=== PATIENT | female | born 1990 | race Caucasian/White ===

== ENCOUNTER 2017-12-04 23:13 | Emergency (ER) | payer OTHER ==
--- NOTE | 2017-12-04 23:35 | PDOC ---
History of Present Illness - General Chief Complaint: Syncope/Near Syncope Stated Complaint: SYNCOPE Time Seen by Provider: 12/04/17 23:20 History Source: Patient Exam Limitations: No Limitations - History of Present Illness Initial Comments: 12/05/17 00:00 This is a 27-year-old female who comes in complaining of a syncopal episode while urinating. Patient has history of syncopal episodes in the past during urination. Patient otherwise has seen a doctor and had them worked up with no cause found. Patient is otherwise healthy denies any medical complaints. Patient has not had any recent illness or did not skip any meals recently. Patient did not injure herself when she passed out. PAST MEDICAL HISTORY: no significant history PAST SURGICAL HISTORY: no significant history FAMILY HISTORY: no pertinant history SOCIAL HISTORY: Pt lives with family and is employed. MEDICATIONS: reviewed ALLERGIES: As per nursing notes Review of Systems General: No fevers or chills, no weakness, no weight loss HEENT: No change in vision. No sore throat,. No ear pain CardioVascular: No chest pain or shortness of breath Respiratory:No cough, or wheezing. Gastrointestinal: no nausea, vomitting, diarrhea or constipation, No rectal bleeding Genitourinary: No dysuria, hematuria, or frequency Musculoskeletal: No joint or muscle pain or swelling Neurologic: No headache, vertigo, + syncope Psychiatric: nor depression Skin: No rashes or easy bruising Endocrine: no increased thirst or abnormal weight change Allergic: no skin or latex allergy All other systems reviewed and normal Exam: General: Well-nourished well-developed individual, no acute distress HEENT: Throat: Normal, tonsils normal, no erythema or exudate Neck: Supple, no meningeal signs, no lymphadenopathy Eyes::Pupils equal reactive and round, extraocular motion intact Chest: Nontender to palpation Cardiac: S1-S2 normal, regular rate and rhythm, no murmurs rubs or gallop Extremities: Warm, dry, no cyanosis, clubbing, or edema Skin: No rashes Neuro: Alert and oriented x3, CN II - XII intact, nonfocal exam with normal strength, normal sensation, normal reflexes, normal gait, Psych: Normal mood and affect EKG shows normal sinus rhythm at a rate of D9 no acute ST-T wave changes normal intervals. Assessment and plan: This is a 27-year-old female with a post micturition syncope and history of similar in the past. Patient's EKG was negative for any acute pathology however does show a mild sinus bradycardia. Patient was counseled to follow-up with a jewish history professor prior to resuming any athletic activity and was discharged home with friends Past History - Past Medical History Allergies/Adverse Reactions: Allergies Allergy/AdvReac Type Severity Reaction Status Date / Time No Known Allergies Allergy Unverified 12/04/17 23:45 Home Medications: Ambulatory Orders NK [No Known Home Medication] 12/04/17 *Physical Exam - Vital Signs Last Vital Signs Temp Pulse Resp BP Pulse Ox 98.8 F 77 16 121/74 100 12/04/17 23:45 12/04/17 23:45 12/04/17 23:45 12/04/17 23:45 12/04/17 23:45 *DC/Admit/Observation/Transfer Diagnosis at time of Disposition: Syncope Qualifiers: Syncope type: unspecified Qualified Code(s): R55 - Syncope and collapse - Discharge Dispostion Disposition: HOME Condition at time of disposition: Stable Admit: No - Referrals - Patient Instructions Printed Discharge Instructions: DI for Syncope in Adults (Fainting) Additional Instructions: follow-up with a jewish history professor. You should be cleared by the jewish history professor before engaging in athletic activity. Return to the emergency department immediately with ANY new, persistent or worsening symptoms. Continue any medications as previously prescribed by your physician. You should follow up with your primary doctor as soon as possible regarding today's emergency department visit. . Please make sure your doctor reviews the results of your emergency evaluation. Thank you for coming to the Emergency Department today for your care. It was a pleasure to see you today. Please note that your evaluation is INCOMPLETE until you follow-up with your doctor. - Post Discharge Activity
[2017-12-04 23:47] VITALS: BP 121/74; PULSE 77; TEMP 98.8; BMI 29.2
--- NOTE | 2017-12-08 19:55 | EKG ---
Test Reason : Blood Pressure : / mmHG Vent. Rate : 059 BPM Atrial Rate : 059 BPM P-R Int : 136 ms QRS Dur : 090 ms QT Int : 418 ms P-R-T Axes : 037 018 037 degrees QTc Int : 413 ms SINUS BRADYCARDIA WITH SINUS ARRHYTHMIA RSR' OR QR PATTERN IN V1 SUGGESTS RIGHT VENTRICULAR CONDUCTION DELAY NO PREVIOUS ECGS AVAILABLE Confirmed by EL BAUGH MD ([id number]) on 12/08/2017 7:55:11 PM Referred By: MD LACY Confirmed By:EL BAUGH MD
== END 2017-12-05 00:15 | disposition home or self-care (01) ==
LOC: FER 23:13
DX: R55 Syncope and collapse (principal)
CPT/HCPCS: 93005; 99282-25